=== PATIENT | female | born 1945 | race Caucasian/White ===

== ENCOUNTER 2018-02-07 16:17 | Emergency (ER) | payer MEDICARE, OTHER ==
[2018-02-07] MEDS ORDERED: ONDANSETRON HCL IV 4 MG/2 ML VIAL IVP ONE (16:43)
[2018-02-07] MEDS ORDERED: HYOSCYAMINE SULFATE ODT 0.125 MG TAB.SUBL SL ONE (16:44)
[2018-02-07] MEDS ORDERED: 0.9 % SODIUM CHLORIDE 1000ML 1,000 ML IV SCH (16:45)
--- NOTE | 2018-02-07 16:49 | Emergency Department Record ---
History of Present Illness - General Chief Complaint: Abdominal Pain Stated Complaint: RT ABDOMINAL PAIN Time Seen by Provider: 02/07/18 16:34 Source: Patient Mode of Arrival: Ambulatory Limitations: No limitations - History of Present Illness Initial Comments: 72 yo female presents to ED for evaluation of lower abdominal pain symptoms, nausea, vomiting, and loose stools that began 2-3 hours ago. Patient denies any recent illness, fevers, chills, or urinary symptoms. Patient does report previous cholecystectomy. Patient denies health problems at her baseline. MD Complaint: Abdominal pain Onset/Timin -: Hour(s) Location: Suprapubic, RLQ Quality: Stabbing Consistency: Constant Improves With: Nothing Worsens With: Nothing Associated Symptoms: Diarrhea, Nausea, Vomiting - Related Data Home Medications Medication Instructions Recorded Confirmed Last Taken Pitavastatin Calcium [Livalo] 2 mg PO DAILY 02/07/18 02/07/18 02/07/18 Previous Rx's Medication Instructions Recorded Ciprofloxacin HCl [Cipro] 500 mg PO Q12HR #19 tablet 02/07/18 Hyoscyamine Sulfate [Levsin-Sl] 0.25 mg SL Q8H PRN #20 tab.subl 02/07/18 Metronidazole [Flagyl] 500 mg PO TID #29 tablet 02/07/18 Allergies Allergy/AdvReac Type Severity Reaction Status Date / Time No Known Drug Intolerances Allergy Unknown Unverified 01/28/14 10:04 Travel Screening - Travel/Exposure Within Last 30 Days Have you traveled within the last 30 days?: No - Travel/Exposure Within Last Year Have you traveled outside the [place] in the last year?: No - Additonal Travel Details Have you been exposed to anyone with a communicable illness?: No - Travel Symptoms Symptom Screening: None Review of Systems Constitutional: Denies: Chills, Fever, Malaise, Night sweats Eyes: Denies: Eye discharge, Eye pain ENT: Denies: Congestion, Ear pain, Epistaxis Respiratory: Denies: Cough, Dyspnea Cardiovascular: Denies: Chest pain, Dyspnea on exertion Endocrine: Denies: Fatigue, Heat or cold intolerance Gastrointestinal: Reports: Abdominal pain, Diarrhea, Nausea, Vomiting Genitourinary: Denies: Incontinence, Retention Musculoskeletal: Denies: Arthralgia, Back pain Skin: Denies: Bruising, Change in color Neurological: Denies: Abnormal gait, Confusion, Headache, Seizure Psychiatric: Denies: Anxiety Hematological/Lymphatic: Denies: Anemia, Blood Clots Past Medical History - SOCIAL HISTORY Smoking Status: Never smoker Alcohol Use: None Drug Use: None - RESPIRATORY Hx Respiratory Disorders: No - CARDIOVASCULAR Hx Cardio Disorders: No Comment:: high cholesterol - NEURO Hx Neuro Disorders: No - GI Hx GI Disorders: No - Hx Genitourinary Disorders: No - ENDOCRINE Hx Endocrine Disorders: No - MUSCULOSKELETAL Hx Musculoskeletal Disorders: No - PSYCH Hx Psych Problems: No - HEMATOLOGY/ONCOLOGY Hx Hematology/Oncology Disorders: No Family Medical History Any Significant Family History?: No Physical Exam - General General Appearance: Alert, Oriented x3, Cooperative, Mild distress Limitations: No limitations - Head Head exam: Atraumatic, Normocephalic, Normal inspection Head exam detail: negative: Abrasion, Contusion, Mcdonnell's sign, General tenderness, Hematoma, Laceration - Eye Eye exam: Normal appearance. negative: Conjunctival injection, Periorbital swelling, Periorbital tenderness, Scleral icterus - ENT Ear exam: negative: Auricular hematoma, Auricular trauma Nasal Exam: negative: Active bleeding, Discharge, Dried blood, Foreign body Mouth exam: negative: Drooling, Laceration, Muffled voice, Tongue elevation - Neck Neck exam: Normal inspection. negative: Meningismus - Respiratory Respiratory exam: Normal lung sounds bilaterally. negative: Rales, Respiratory distress, Rhonchi, Stridor - Cardiovascular Cardiovascular Exam: Regular rate, Normal rhythm, Normal heart sounds - GI/Abdominal GI/Abdominal exam: Soft, Tenderness, Other (Mild-moderate TTP suprapubic, RLQ, no rebound or guarding present, no peritoneal signs are present on examination.) . negative: Rebound, Rigid - Rectal Rectal exam: Deferred - exam: Deferred - Extremities Extremities exam: Normal inspection. negative: Pedal edema, Tenderness - Back Back exam: Denies: CVA tenderness (R), CVA tenderness (L) - Neurological Neurological exam: Alert, Normal gait, Oriented X3 - Psychiatric Psychiatric exam: Normal affect, Normal mood - Skin Skin exam: Normal color. negative: Abrasion Type of lesion: negative: abrasion Course Vital Signs 02/07/18 16:28 Temperature 98.0 F Pulse Rate 79 Respiratory 16 Rate Blood Pressure 165/87 Pulse Ox 97 - Reevaluation(s) Reevaluation #1: 02/07/18 17:15 Labs reviewed, WBC 14.4, 84% neutrophils, 2% Bands. Labs are otherwise grossly unremarkable for an acute process. Reevaluation #2: 02/07/18 17:38 UA appears negative for an acute process. Patient is currently in CT for imaging. Reevaluation #3: 02/07/18 17:43 Patient is back from CT imaging, reports that she is pain-free at this time. Awaiting radiology read. Reevaluation #4: 02/07/18 18:39 CT Abdomen and Pelvis: Diffuse colitis, likely infectious Patient was updated on all results, reports that she is pain-free after Levsin. Symptoms do not appear c/w ischemic colitis as she is resting comfortably. Patient appears stable for discharge on Cipro and Flagyl as directed. Patient appears stable for discharge at this time. Medical Decision Making - Lab Data Result diagrams: 02/07/18 16:49 02/07/18 16:49 Disposition Disposition: Discharge Clinical Impression: Colitis Disposition: Home, Self-Care Condition: (2) Stable Instructions: Colitis (ED) Additional Instructions: Return to ED if your symptoms worsen or if you have any concerns. Cipro, Flagyl, and Levsin as directed. Follow-up with your family doctor in 3-5 days as directed. Prescriptions: Ciprofloxacin HCl [Cipro] 500 mg PO Q12HR #19 tablet Hyoscyamine Sulfate [Levsin-Sl] 0.25 mg SL Q8H PRN #20 tab.subl PRN Reason: Abdominal Pain Metronidazole [Flagyl] 500 mg PO TID #29 tablet Forms: Patient Portal Access Time of Disposition: 18:43 Quality - Quality Measures Quality Measures: N/A - Blood Pressure Screening Does Patient Have Any of the Following: Active Dx of HTN Blood Pressure Classification: Pre-Hypertensive BP Reading Systolic Measurement: 165 Diastolic Measurement: 87 Screening for High Blood Pressure: Patient Exclusion, Hx of HTN [G9744]
[2018-02-07 16:53] LABS: HEMATOCRIT 45.2 % (35.0-47.0); HEMOGLOBIN 14.2 gm/dl (11.6-16.0); MEAN CELL VOLUME 92.6 fl (81-97); MEAN CORPUSCULAR HEMOGLOBIN 29.1 pg (27-33); MEAN CORPUSCULAR HGB CONC 31.4 g/dl (32-36); MEAN PLATELET VOLUME 9.8 fl (7.4-10.4); PLATELET COUNT 288 K/uL (130-400); RED BLOOD COUNT 4.88 M/uL (3.80-5.40); RED CELL DISTRIBUTION WIDTH 13.8 % (11.5-14.5); WHITE BLOOD COUNT W/O DIFF 14.4 K/uL (4.2-12.2)
[2018-02-07 17:00] LABS: PLATELET ESTIMATE NORMAL (NORMAL)
[2018-02-07 17:03] LABS: BLOOD UREA NITROGEN 9 mg/dL (8-23); CREATININE 0.5 mg/dL (0.5-0.9); EST GLOMERULAR FILTRATION RATE > 60 mL/min; TOTAL PROTEIN 7.3 g/dL (6.6-8.7)
[2018-02-07 17:05] LABS: GLUCOSE,RANDOM 134 mg/dL (74-109)
[2018-02-07 17:08] LABS: ALB/GLOB RATIO 1.5 (1.1-1.8); ALBUMIN 4.4 g/dL (4.0-5.0); ALKALINE PHOSPHATASE 79 U/L (35-104); ALT/SGPT 5 U/L (<33); AST/SGOT 20 U/L (10.0-35.0); LIPASE 55 U/L (13-60)
[2018-02-07 17:25] LABS: URINE APPEARANCE CLEAR; URINE BILIRUBIN NEGATIVE (NEGATIVE); URINE BLOOD NEGATIVE (NEGATIVE); URINE GLUCOSE (UA) NEGATIVE (NEGATIVE); URINE KETONE TRACE (NEGATIVE); URINE LEUKOCYTE ESTERASE NEGATIVE (NEGATIVE); URINE NITRITE NEGATIVE (NEGATIVE); URINE PROTEIN NEGATIVE (NEGATIVE)
[2018-02-07 17:26] LABS: URINE COLOR AMBER
[2018-02-07] MEDS ORDERED: METRONIDAZOLE 250 MG TABLET PO ONE (18:43)
[2018-02-07] MEDS ORDERED: CIPROFLOXACIN HCL 500 MG TABLET PO ONE (18:43)
--- NOTE | 2018-02-08 13:38 | CT SCAN REPORT ---
EXAM: CT OF THE ABDOMEN AND PELVIS WITH IV CONTRAST HISTORY: RIGHT LOWER ABDOMINAL PAIN RADIATING TO THE RIGHT GROIN, VOMITING. TECHNIQUE: Helical CT scan of the abdomen and pelvis was obtained after the administration of 100 ml of intravenous Omnipaque 300 contrast. No oral contrast was administered. Comparison: CT of the abdomen and pelvis 02/27/10. FINDINGS: The lung bases are clear. Coronary artery calcifications are present. The liver has a few small cysts, stable. The gallbladder has been removed in the interim. The common bile duct is again mildly dilated, 5 mm in the pancreatic head. The spleen, pancreas, and adrenal glands are within normal limits. Cortical cysts are present in both kidneys, no hydronephrosis. No renal calculi. There is mild diffuse thickening of the colon with pericolonic fat stranding. Moderate sigmoid diverticulosis. Moderate atherosclerotic calcifications of the abdominal aorta. The celiac access and superior mesenteric artery are patent. No free fluid in the pelvis. The uterus and ovaries have normal size. No fluid collections or extraluminal gas. The bony structures show moderate degenerative changes of the lumbar spine. IMPRESSION: FINDINGS OF COLITIS. INFECTIOUS ETIOLOGY IS MOST LIKELY. AN ISCHEMIA AND INFLAMMATORY BOWEL DISEASE CAN ALSO BE CONSIDERED. THE APPENDIX IS NORMAL. JOB NUMBER: [id number] MTDD
== END 2018-02-07 18:53 | disposition home or self-care (01) ==
LOC: ER 16:17
DX: K52.9 Noninfective gastroenteritis and colitis, unspecified (principal); R11.2 Nausea with vomiting, unspecified; R10.31 Right lower quadrant pain
CPT/HCPCS: 74177; 80053; 81003; 83690; 85027; 96361; 96374; 99284; J2405; J7030

== ENCOUNTER 2019-02-16 16:29 | Emergency (ER) | payer MEDICARE, OTHER ==
[2019-02-16] MEDS ORDERED: 0.9 % SODIUM CHLORIDE 1000ML 1,000 ML IV ONE (17:02)
[2019-02-16] MEDS ORDERED: ACETAMINOPHEN 1,000 MG/100 ML BTL IVPB ONE (17:02)
[2019-02-16] MEDS ORDERED: ONDANSETRON HCL IV 4 MG/2 ML VIAL IVP ONE (17:02)
--- NOTE | 2019-02-16 17:09 | Emergency Department Record ---
History of Present Illness - General Source: Patient Mode of Arrival: Ambulatory Limitations: No limitations - History of Present Illness Initial Comments: 73 yo female presents with about 2 days of right lower abdominal pain. The pain does come and go some but is mostly present. No fever. No vomiting. No diarrhea. No rash. Her appetite is decreased. She has had her gall bladder removed. No diarrhea. No dysuria. No blood in the stools. PCP is Dr Duckworth. She still has her appendix. MD Complaint: Abdominal pain Onset/Timin -: Days(s) (2) Location: RLQ Radiation: None Migration to: RLQ Severity: Moderate Severity scale (1-10): 8 Quality: Dull, Other Consistency: Constant Improves With: Nothing Worsens With: Nothing Associated Symptoms: Denies other symptoms - Related Data Patient : No <LUANNE BELLA - Last Filed: 02/16/19 18:26> <KEVIN MORALES - Last Filed: 02/16/19 20:09> - General Chief Complaint: Abdominal Pain Stated Complaint: L RIGHT SIDE PAIN Time Seen by Provider: 02/16/19 16:39 - Related Data Allergies Allergy/AdvReac Type Severity Reaction Status Date / Time No Known Drug Intolerances Allergy Unknown Unverified 01/28/14 10:04 Travel Screening - Travel/Exposure Within Last 30 Days Have you traveled within the last 30 days?: No <LUANNE BELLA - Last Filed: 02/16/19 18:26> Review of Systems Constitutional: Denies: Chills, Fever, Malaise, Weakness Eyes: Denies: Eye discharge ENT: Denies: Congestion, Throat pain Respiratory: Denies: Cough, Dyspnea Cardiovascular: Denies: Chest pain, Palpitations, Syncope Endocrine: Denies: Fatigue, Polydipsia, Polyuria Gastrointestinal: Reports: Abdominal pain, Nausea. Denies: Diarrhea, Vomiting Genitourinary: Denies: Dysuria, Frequency, Hematuria, Urgency Musculoskeletal: Denies: Arthralgia, Back pain, Joint swelling, Myalgia Skin: Denies: Bruising, Change in color, Rash Neurological: Denies: Confusion, Headache Psychiatric: Denies: Anxiety Hematological/Lymphatic: Denies: Blood Clots, Easy bleeding, Easy bruising <LUANNE BELLA - Last Filed: 02/16/19 18:26> Past Medical History - SOCIAL HISTORY Smoking Status: Never smoker - RESPIRATORY Hx Respiratory Disorders: No - CARDIOVASCULAR Hx Cardio Disorders: No Comment:: high cholesterol - NEURO Hx Neuro Disorders: No - GI Hx GI Disorders: No - Hx Genitourinary Disorders: No - ENDOCRINE Hx Endocrine Disorders: No - MUSCULOSKELETAL Hx Musculoskeletal Disorders: No - PSYCH Hx Psych Problems: No - HEMATOLOGY/ONCOLOGY Hx Hematology/Oncology Disorders: No <LUANNE BELLA - Last Filed: 02/16/19 18:26> Family Medical History Any Significant Family History?: No <LUANNE BELLA - Last Filed: 02/16/19 18:26> Physical Exam - General General Appearance: Alert, Oriented x3, Cooperative, No acute distress Limitations: No limitations - Head Head exam: Atraumatic, Normal inspection - Eye Eye exam: Normal appearance, PERRL. negative: Conjunctival injection - ENT ENT exam: Normal exam Ear exam: Normal external inspection Nasal Exam: Normal inspection Mouth exam: Normal external inspection - Neck Neck exam: Normal inspection - Respiratory Respiratory exam: Normal lung sounds bilaterally. negative: Respiratory dis tress - Cardiovascular Cardiovascular Exam: Regular rate, Normal rhythm, Normal heart sounds - GI/Abdominal GI/Abdominal exam: Soft, Tenderness (Soft abdomen but tender in the RLQ. No rebound or guarding). negative: Distended, Guarding, Rebound, Rigid - Rectal Rectal exam: Deferred - exam: Deferred - Extremities Extremities exam: Normal inspection - Back Back exam: Denies: CVA tenderness (R), CVA tenderness (L), Paraspinal tenderness, Rash noted, Tenderness, Vertebral tenderness - Neurological Neurological exam: Alert, Oriented X3 - Psychiatric Psychiatric exam: Normal affect, Normal mood - Skin Skin exam: Dry, Intact, Normal color, Warm <LUANNE BELLA - Last Filed: 02/16/19 18:26> Course Vital Signs 02/16/19 16:36 Temperature 98.9 F Pulse Rate 64 Respiratory 18 Rate Blood Pressure 192/88 Pulse Ox 96 - Reevaluation(s) Reevaluation #1: The labs results were reviewed There are no acute significant abnormalities of the CBC There are no acute significant abnormalities of the CMP The UA was reviewed. No signs of infection or significant acute abnormality 02/16/19 17:59 02/16/19 18:30 The case was discussed with Dr Morales for review of the CT scan and disposition. <LUANNE BELLA - Last Filed: 02/16/19 18:26> Vital Signs 02/16/19 02/16/19 16:36 19:15 Temperature 98.9 F Pulse Rate 64 Pulse Rate [ 72 Pulse Ox Probe] Respiratory 18 16 Rate Blood Pressure 192/88 Blood Pressure 172/75 [Right Arm] Pulse Ox 96 98 - Reevaluation(s) Reevaluation #2: Assumed care from Dr. Bella at 1900 due to shift change and pending CT scan. Introduced myself to patient on her way to CT scan. She states she has minimal to no pain at this time. 02/16/19 19:19 Reevaluation #3: Repeat abdominal exam is non-tender. Patient states her pain level is zero. She is ready for discharge. CT results discussed. All questions answered. The diverticulosis and equivocal diverticulitis on the CT was on the sigmoid colon and not on the right where her symptoms were. She was comfortable with going home and agrees to return tomorrow IF she has any pain returning. 02/16/19 20:02 <KEVIN MORALES - Last Filed: 02/16/19 20:09> Medical Decision Making - Lab Data Result diagrams: 02/16/19 16:50 02/16/19 16:50 <LUANNE BELLA - Last Filed: 02/16/19 18:26> - Management Options MDM Management: No Additional Work-up Planned - Data Complexity MDM Data: Labs Ordered and/or Reviewed, X-Ray Ordered and/or Reviewed (ABD/Pelvis CT:Normal appendix. Sigmoid diverticulosis with equivocal spot of diverticulitis in sigmoid? Chronic changes includ p.o. som, stable hepatic and renal cysts unchanged from 5-8-18. Multilevel degenerative changes lumbar spine. ) - Lab Data Result diagrams: 02/16/19 16:50 02/16/19 16:50 Lab Results 02/16/19 02/16/19 02/16/19 Range/Units 16:50 16:50 16:50 WBC 9.8 (4.2-12.2) K/uL RBC 4.96 (3.80-5.40) M/uL Hgb 14.7 (11.6-16.0) gm/dl Hct 45.8 (35.0-47.0) % MCV 92.3 (81-97) fl MCH 29.6 (27-33) pg MCHC 32.1 (32-36) g/dl RDW 14.0 (11.5-14.5) % Plt Count 306 (130-400) K/uL MPV 10.4 (7.4-10.4) fl Neutrophils % 85.0 H (47-80) % Band Neutrophils % 2.0 (0-5) % Eosinophils % Not Reportable Basophils % Not Reportable Absolute Neutrophils 8.13 Lymphocytes 9.0 L (16-45) % Monocytes 3.0 (0-9) % Eosinophil Count 1.0 (0-6) % Sodium 141 (136-145) mmol/L Potassium 3.9 (3.4-4.5) mmol/L Chloride 99 (98-107) mmol/L Carbon Dioxide 29.0 (22-29) mmol/L Anion Gap 13.0 (7-16) BUN 11 (8-23) mg/dL Creatinine 0.6 (0.5-0.9) mg/dL Estimated GFR > 60 mL/min Random Glucose 131 H (74-109) mg/dL Calcium 10.2 (8.8-10.2) mg/dL Total Bilirubin 0.60 (0.2-1.0) mg/dL AST 19 (10.0-35.0) U/L ALT 14 (<33) U/L Alkaline Phosphatase 66 (35-104) U/L Total Protein 7.7 (6.6-8.7) g/dL Albumin 4.5 (4.0-5.0) g/dL Globulin 3.2 (1.4-4.8) gm/dL Albumin/Globulin Ratio 1.4 (1.1-1.8) Lipase 28 (13-60) U/L Urine Color Yellow Urine Appearance Clear Urine pH 7.5 (5.0-8.0) Ur Specific [place] 1.020 (1.002-1.030) Urine Protein Negative (NEGATIVE) Urine Glucose (UA) Negative (NEGATIVE) Urine Ketones 15 mg/dl H (NEGATIVE) Urine Blood Negative (NEGATIVE) Urine Nitrite Negative (NEGATIVE) Urine Bilirubin Negative (NEGATIVE) Urine Urobilinogen 0.2 (0.20 - 1.00) E.U./dL Ur Leukocyte Esterase Negative (NEGATIVE) <KEVIN MORALES A - Last Filed: 05/17/19 20:09> Disposition <LUANNE BELLA - Last Filed: 02/16/19 18:26> Disposition: Discharge <KEVIN MORALES - Last Filed: 02/16/19 20:09> Clinical Impression: Abdominal pain Qualifiers: Abdominal location: right lower quadrant Qualified Code(s): R10.31 - Right lower quadrant pain Disposition: Home, Self-Care Condition: (1) Good Instructions: Abdominal Pain (ED) Additional Instructions: Home with . If symptoms return then recheck here tomorrow, otherwise follow up with PCP as needed. Forms: Patient Portal Access Quality - Blood Pressure Screening Does Patient Have Any of the Following: No Blood Pressure Classification: Pre-Hypertensive BP Reading Systolic Measurement: 192 Diastolic Measurement: 88 Screening for High Blood Pressure: < Pre-Hypertensive BP, F/U Documented > [G8950] <LUANNE BELLA - Last Filed: 02/16/19 18:26> - Quality Measures Quality Measures: N/A - Blood Pressure Screening Does Patient Have Any of the Following: No Blood Pressure Classification: Pre-Hypertensive BP Reading Systolic Measurement: 192 Diastolic Measurement: 88 Screening for High Blood Pressure: < Pre-Hypertensive BP, F/U Documented > [G8950] Pre-Hypertensive Follow-up Interventions: Follow-up with rescreen every year. <KEVIN MORALES - Last Filed: 02/16/19 20:09>
[2019-02-16 17:34] LABS: ABSOLUTE NEUTROPHIL COUNT 8.13; HEMATOCRIT 45.8 % (35.0-47.0); HEMOGLOBIN 14.7 gm/dl (11.6-16.0); MEAN CELL VOLUME 92.3 fl (81-97); MEAN CORPUSCULAR HEMOGLOBIN 29.6 pg (27-33); MEAN CORPUSCULAR HGB CONC 32.1 g/dl (32-36); MEAN PLATELET VOLUME 10.4 fl (7.4-10.4); PLATELET COUNT 306 K/uL (130-400); RED BLOOD COUNT 4.96 M/uL (3.80-5.40); WHITE BLOOD COUNT W/O DIFF 9.8 K/uL (4.2-12.2)
[2019-02-16 17:37] LABS: URINE APPEARANCE CLEAR; URINE BILIRUBIN NEGATIVE (NEGATIVE); URINE BLOOD NEGATIVE (NEGATIVE); URINE COLOR YELLOW; URINE GLUCOSE (UA) NEGATIVE (NEGATIVE); URINE KETONE 15 mg/dL (NEGATIVE); URINE LEUKOCYTE ESTERASE NEGATIVE (NEGATIVE); URINE NITRITE NEGATIVE (NEGATIVE); URINE PROTEIN NEGATIVE (NEGATIVE); URINE UROBILINOGEN 0.2 E.U./dL (0.20 - 1.00)
[2019-02-16 17:46] LABS: BLOOD UREA NITROGEN 11 mg/dL (8-23); CREATININE 0.6 mg/dL (0.5-0.9); EST GLOMERULAR FILTRATION RATE > 60 mL/min
[2019-02-16 17:47] LABS: LIPASE 28 U/L (13-60); TOTAL PROTEIN 7.7 g/dL (6.6-8.7)
[2019-02-16 17:49] LABS: GLUCOSE,RANDOM 131 mg/dL (74-109)
[2019-02-16 17:51] LABS: ALB/GLOB RATIO 1.4 (1.1-1.8); ALBUMIN 4.5 g/dL (4.0-5.0); ALKALINE PHOSPHATASE 66 U/L (35-104); ALT/SGPT 14 U/L (<33); AST/SGOT 19 U/L (10.0-35.0)
--- NOTE | 2019-02-19 19:25 | CT SCAN REPORT ---
EXAM: CT SCAN ABDOMEN/PELVIS W CONTRAST HISTORY: RIGHT LOWER QUADRANT ABDOMINAL PAIN BEGINNING THIS AFTERNOON. PRIOR GALLBLADDER AND BACK SURGERY TECHNIQUE: Axial CT scan of the abdomen and pelvis obtained following both oral or IV contrast. Please see the medical record for contrast specifics. COMPARISON: CT abdomen/pelvis 02/07/18. FINDINGS: Gallbladder again noted to be surgically absent. A few small low- attenuation foci in the liver, predominately in the left lobe, all appear essentially unchanged from before consistent with small cysts, as previously reported. No definite new hepatic mass identified. No definite splenic, adrenal, or pancreatic mass identified. Previously described bilateral renal cysts are again seen and appear essentially unchanged from before with the largest laterally on the left as before. This largest left renal cyst measures about 1.5 cm in size and has a CT density of 52, which is somewhat high for a typical cyst but, because it was present back on 02/27/10 as well measuring about 1.5 cm at that time and with a CT density of about 60, this appears therefore essentially unchanged and is likely just a relatively dense cyst. There is moderate diverticulosis in the sigmoid colon. There is a segment of the sigmoid colon that has slight blurring of the alvarez in the upper sigmoid colon and very mild changes of acute sigmoid diverticulitis cannot be excluded. Oral contrast given has passed throughout the small bowel well into the colon with no small bowel obstruction evident. Appendix not well seen but no appendicitis evident. No free intraperitoneal air or free intraperitoneal fluid identified. Multilevel degenerative disc disease in the lumbar spine. IMPRESSION: 1. POST-OP CHOLECYSTECTOMY. 2. APPEARANCE CONSISTENT WITH SOME SMALL HEPATIC CYSTS AND BILATERAL RENAL CYSTS, ALL APPEARING ESSENTIALLY UNCHANGED FROM 02/07/18. 3. DIVERTICULOSIS IN THE SIGMOID COLON WITH AN EQUIVOCAL AREA OF MILD DIVERTICULITIS IN THE UPPER SIGMOID COLON. 4. APPENDIX NOT WELL SEEN BUT NO APPENDICITIS IDENTIFIED AND NO FREE AIR OR FREE FLUID EVIDENT. 5. MULTILEVEL DEGENERATIVE CHANGE IN THE SPINE. JOB NUMBER: [id number] [facility]
== END 2019-02-16 20:14 | disposition home or self-care (01) ==
LOC: ER 16:29
DX: R10.31 Right lower quadrant pain (principal)
CPT/HCPCS: 99284 ×2; 96374; 96375; 83690; 80053; 81003; 85027; 74177; Q9967; J2405; J7030